=== PATIENT | male | born 1950 | race Caucasian/White ===

== ENCOUNTER 2018-03-28 19:27 | Inpatient (IN) | payer MEDICARE, OTHER ==
[2018-03-28] MEDS ORDERED: Ibuprofen 800 MG Tab PO ONE (19:43)
[2018-03-28] MEDS ORDERED: Levofloxacin/Dextrose 5%-Water 750 MG in Premix Bag 1 BAG IV ONE (19:43)
[2018-03-28] MEDS ORDERED: Sodium Chloride 0.9% 1,000 ML IV SCH (19:45)
[2018-03-28] MEDS ORDERED: Lactated Ringers 1,000 ML IV SCH (20:00)
--- NOTE | 2018-03-28 20:08 | EDM.PDOC ---
ED HPI GENERAL MEDICAL PROBLEM - General Chief Complaint: Fever Stated Complaint: RESPIRATORY DISTRESS Time Seen by Provider: 03/28/18 19:45 - History of Present Illness INITIAL COMMENTS - FREE TEXT/NARRATIVE: Ahsan is a 67-year-old male who came in because of sudden onset of fever and chills around 11 this morning. It's accompanied by shortness of breath cough that is productive of frothy sputum. He went to the walk-in clinic was found to have a high temperature and was in good distress. 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 He also sees a sba business development officer twice a year - Related Data Allergies Allergy/AdvReac Type Severity Reaction Status Date / Time acetaminophen [From Tylenol] Allergy Rash Verified 03/28/18 19:34 amoxicillin [Amoxicillin] Allergy Rash Verified 03/28/18 19:34 penicillin V [Penicillin V] Allergy Rash Verified 03/28/18 19:34 Penicillins Allergy Rash Verified 03/28/18 19:34 piperacillin Allergy Rash Verified 03/28/18 19:34 piperacillin sodium Allergy Rash Verified 03/28/18 19:34 [From Zosyn] tazobactam sodium Allergy Rash Verified 03/28/18 19:34 [From Zosyn] Home Meds: Home Meds Aspirin [Blaze Chewable] 81 mg PO DAILY 10/06/13 [History] Cholecalciferol (Vitamin D3) [Vitamin D3] 2,000 unit PO DAILY 10/06/13 [History] Docusate Sodium/Sennosides [Senokot-S] 2 each PO BEDTIME 10/06/13 [History] Famotidine [Pepcid] 10 mg PO BID 10/06/13 [History] LORazepam 0.5 mg PO TID 10/06/13 [History] Multivitamin [Multivitamins] 1 each PO DAILY 10/06/13 [History] PARoxetine [Paxil] 30 mg PO DAILY 10/06/13 [History] Polyethylene Glycol 3350 [MiraLAX] 17 gm PO DAILY 10/06/13 [History] guaiFENesin [Mucus-ER] 1,200 mg PO BID 10/06/13 [History] Acetylcysteine [Mucomyst 20%] 200 mg INH BID PRN 03/28/18 [History] Albuterol Sulfate 1 packet INH QID 03/28/18 [History] ED ROS GENERAL - Review of Systems Review Of Systems: ROS reveals no pertinent complaints other than HPI. ED EXAM, SEPSIS - Physical Exam Exam: See Below Exam Limited By: No Limitations General Appearance: Alert, Moderate Distress Ears: Normal External Exam Nose: Normal Inspection Throat/Mouth: Normal Inspection Head: Atraumatic Neck: Normal Inspection Respiratory/Chest: Respiratory Distress, Crackles, Rales, Accessory Muscle Use Cardiovascular: Normal Peripheral Pulses GI/Abdominal Exam: Normal Bowel Sounds Back: Normal Inspection Extremities: Normal Inspection Neurological: Alert Psychiatric: Anxious Skin: Warm Course - Vital Signs Text/Narrative:: IV access obtained. Started a bolus on LR,and gave him Motrin.Obtained Blood cultures and started abx. Last Recorded V/S: Last Vital Signs Temp 103 F H 03/28/18 20:10 Pulse 118 H 03/28/18 19:35 Resp 28 H 03/28/18 19:35 BP 127/65 03/28/18 19:35 Pulse Ox 94 L 03/28/18 19:35 - Orders/Labs/Meds Orders: Active Orders 24 hr Category Date Time Status Chest 1V Frontal [CR] Stat Exams 03/28/18 20:00 Taken C-REACTIVE PROTEIN [CHEM] Stat Lab 03/28/18 20:00 Received CBC WITH AUTO DIFF [HEME] Stat Lab 03/28/18 20:00 Results CULTURE BLOOD [BC] Urgent Lab 03/28/18 20:00 Received CULTURE BLOOD [BC] Urgent Lab 03/28/18 20:05 Received UA W/MICROSCOPIC [URIN] Stat Lab 03/28/18 19:42 Ordered Lactated Ringers [Ringers, Lactated] 1,000 ml Med 03/28/18 20:00 Active IV ASDIRECTED Levofloxacin/Dextrose 5%-Water [Levaquin in D5W 750 MG/ Med 03/28/18 19:43 Active 150 ML] 750 mg Premix Bag 1 bag IV ONETIME Blood Culture x2 Reflex Set [OM.PC] Urgent Oth 03/28/18 19:41 Ordered Medication Orders Levofloxacin/Dextrose 750 mg/ (Premix) 150 mls @ 100 mls/hr IV ONETIME ONE Stop: 03/28/18 21:12 Last Admin: 03/28/18 20:05 Dose: 100 mls/hr Lactated Ringer's (Ringers, Lactated) 1,000 mls @ 999 mls/hr IV ASDIRECTED [facility] Last Admin: 03/28/18 20:00 Dose: 999 mls/hr Labs: Laboratory Tests 03/28/18 03/28/18 03/28/18 Range/Units 20:00 20:00 20:00 WBC 12.3 H (4.5-12.0) X10-3/uL RBC 4.63 (4.30-5.75) x10(6)uL Hgb 14.2 (11.5-15.5) g/dL Hct 41.6 (30.0-51.3) % MCV 89.8 (80-96) fL MCH 30.6 (27.7-33.6) pg MCHC 34.0 (32.2-35.4) g/dL RDW 13.6 (11.5-15.5) % Plt Count 171 (125-369) X10(3)uL MPV 8.5 (7.4-10.4) fL Add Manual Diff Yes Sodium 138 (135-145) mmol/L Potassium 3.9 (3.5-5.3) mmol/L Chloride 102 (100-110) mmol/L Carbon Dioxide 29 (21-32) mmol/L BUN 17 (7-18) mg/dL Creatinine 0.6 L (0.70-1.30) mg/dL Est Cr Clr Drug Dosing TNP Estimated GFR (MDRD) > 60 (>60) BUN/Creatinine Ratio 28.3 H (9-20) Glucose 133 H (80-116) mg/dL Lactic Acid 0.9 (0.4-2.2) mmol/L Calcium 8.9 (8.6-10.2) mg/dL Meds: Medications Generic Name Dose Route Start Last Admin Trade Name Freq PRN Reason Stop Dose Admin Levofloxacin/Dextrose 750 mg/ 150 mls @ 100 mls/hr 03/28/18 19:43 03/28/18 20 :05 Premix IV 03/28/18 21:12 100 mls/hr ONETIME ONE Administration Lactated Ringer's 1,000 mls @ 999 mls/hr 03/28/18 20:00 03/28/18 20:00 Ringers, Lactated IV 999 mls/hr ASDIRECTED JOSE Administration Discontinued Medications Generic Name Dose Route Start Last Admin Trade Name Lev PRN Reason Stop Dose Admin Sodium Chloride 1,000 mls @ 999 mls/hr 03/28/18 19:45 Normal Saline IV ASDIRECTED JOSE Ibuprofen 800 mg 03/28/18 19:43 03/28/18 20:10 Motrin PO 03/28/18 19:44 800 mg ONETIME ONE Administration Departure - Departure Time of Disposition: 21:08 Disposition: Admitted As Inpatient 68 Condition: Fair Clinical Impression: Pneumonia - Discharge Information Referrals: Roberto Howard MD [Primary Care Provider] - Forms: ED Department Discharge - Problem List & Annotations (1) Pneumonia SNOMED Code(s): 903903094 Code(s): J18.9 - PNEUMONIA, UNSPECIFIED ORGANISM Status: Acute Current Visit: No (2) Myopathy SNOMED Code(s): 81712893 Code(s): G72.9 - MYOPATHY, UNSPECIFIED Status: Acute Current Visit: Yes (3) Chronic bronchitis SNOMED Code(s): 46187568 Code(s): J42 - UNSPECIFIED CHRONIC BRONCHITIS Status: Acute Current Visit : Yes Qualifiers: Chronic bronchitis type: mucopurulent Qualified Code(s): J41.1 - Mucopurulent chronic bronchitis (4) Anxiety SNOMED Code(s): 81727614 Code(s): F41.9 - ANXIETY DISORDER, UNSPECIFIED Status: Acute Current Visit: Yes (5) Fever SNOMED Code(s): 407965696 Code(s): R50.9 - FEVER, UNSPECIFIED Status: Acute Current Visit: Yes (6) Respiratory muscle paralysis SNOMED Code(s): 38726320 Code(s): R06.81 - APNEA, NOT ELSEWHERE CLASSIFIED Status: Acute Current Visit: Yes - Problem List Review Problem List Initiated/Reviewed/Updated: Yes - My Orders Last 24 Hours: My Active Orders 03/28/18 19:41 Blood Culture x2 Reflex Set [OM.PC] Urgent 03/28/18 19:42 UA W/MICROSCOPIC [URIN] Stat 03/28/18 19:43 Levofloxacin/Dextrose 5%-Water [Levaquin in D5W 750 MG/150 ML] 750 mg Premix Bag 1 bag IV ONETIME 03/28/18 20:00 Chest 1V Frontal [CR] Stat C-REACTIVE PROTEIN [CHEM] Stat CBC WITH AUTO DIFF [HEME] Stat CULTURE BLOOD [BC] Urgent Lactated Ringers [Ringers, Lactated] 1,000 ml IV ASDIRECTED 03/28/18 20:05 CULTURE BLOOD [BC] Urgent - Assessment/Plan Last 24 Hours: My Active Orders 03/28/18 19:41 Blood Culture x2 Reflex Set [OM.PC] Urgent 03/28/18 19:42 UA W/MICROSCOPIC [URIN] Stat 03/28/18 19:43 Levofloxacin/Dextrose 5%-Water [Levaquin in D5W 750 MG/150 ML] 750 mg Premix Bag 1 bag IV ONETIME 03/28/18 20:00 Chest 1V Frontal [CR] Stat C-REACTIVE PROTEIN [CHEM] Stat CBC WITH AUTO DIFF [HEME] Stat CULTURE BLOOD [BC] Urgent Lactated Ringers [Ringers, Lactated] 1,000 ml IV ASDIRECTED 03/28/18 20:05 CULTURE BLOOD [BC] Urgent Plan: Admit Ahsan to the ICU, broad-spectrum antibiotics awaiting blood and sputum cultures.
[2018-03-28] MEDS ORDERED: Ondansetron 4 MG Tab.DIS PO PRN (21:08)
[2018-03-28] MEDS ORDERED: LORazepam 2 MG/ML SDV IV PRN (21:08)
[2018-03-28] MEDS: methylPREDNISolone Sodium Succinate 125 MG/2 ML SDV IVPUSH SCH (21:30)
[2018-03-28] MEDS ORDERED: Vancomycin 1,000 MG SDV ONE (21:54)
[2018-03-28] MEDS ORDERED: Albuterol/Ipratropium 3.0-0.5 MG/3 ML Neb Soln ONE (23:23)
[2018-03-28] MEDS ORDERED: Albuterol/Ipratropium 3.0-0.5 MG/3 ML Neb Soln NEB ONE (23:30)
[2018-03-28] MEDS: Lactated Ringers 1,000 ML IV SCH (23:31)
[2018-03-29] MEDS ORDERED: PARoxetine 20 MG Tab ONE (00:05)
[2018-03-29] MEDS: methylPREDNISolone Sodium Succinate 125 MG/2 ML SDV IVPUSH SCH ×2 (05:40→13:16)
[2018-03-29] MEDS: Lactated Ringers 1,000 ML IV SCH ×2 (06:56→16:24)
[2018-03-29] MEDS: Albuterol/Ipratropium 3.0-0.5 MG/3 ML Neb Soln NEB SCH ×3 (07:05→15:13)
[2018-03-29] MEDS ORDERED: cefTRIAXone 2 GM Vial IVPUSH SCH (10:45)
[2018-03-29] MEDS ORDERED: Azithromycin 500 MG in Sodium Chloride 0.9% 250 ML IV SCH ×4 (11:00)
--- NOTE | 2018-03-29 11:19 | HP ---
ADMISSION DATE: 03/28/2018 CHIEF COMPLAINT: Complicated cough, fever, and pneumonia. HISTORY OF PRESENT ILLNESS: Ahsan Padron is a 67-year-old male, [place] resident, was seen at [facility], referred to ER, admitted to the hospital for treatment. He has been feeling poorly since probably the end of February. The last few days though with troublesome cough, low-grade fever, chills, productive cough, moderate frothy sputum, and a sense of reduced well-being. History of complicated pneumonia dating back 4 years ago with lengthy stay and critical illness myopathy. Radiographic evidence of pneumonia and elevated white count suggesting for hospitalization. PRESENT MEDICATIONS: Please see med recon list. ALLERGIES: Penicillin, amoxicillin, piperacillin, Zosyn, sodium chloride, and acetaminophen. PAST MEDICAL HISTORY: Significant for prolonged hospitalization between 2011 and 2013. Critical illness myopathy, complicated pneumonia, tracheostomy, and long-term followup. Resulted in significant myopathy and moderate health difficulty. PAST SURGICAL HISTORY: Surgeries include tracheostomy and bronchoscopies. SOCIAL HISTORY: Lives with in [facility], retired. in good health. Children in good health. Nonsmoker. No alcohol. No illicit drug use. REVIEW OF SYSTEMS: CONSTITUTIONAL: Feeling poorly today. HEENT: Sees well, hears well, intact dentition. GI: Bowels have been fine. : Bladder has been fine. No blood in stools. No blood in urine. CHEST: Cough and respiratory difficulty present, generalized weakness. PHYSICAL EXAMINATION: VITAL SIGNS: 36.7; pulse is 60; 131/103, though previously 116/61; 94%. GENERAL: Appears comfortable. Sats are reasonable. Speech was fluent. Oriented to time, place, and person. HEENT: Funduscopic benign. Conjunctivae clear. Bright tympanic membranes. Decreased hearing. Clear nasal discharge. Mouth and oropharynx clear. Dentition in poor condition. NECK: Benign. Thyroid small. No JVD. No carotid bruits. Healed tracheostomy scar. CHEST: Diffuse wheeze and coarse rhonchi, particularly in the left lower lobe. HEART: Distant heart sounds with occasional ectopy. BREASTS: Normal male breasts. ABDOMEN: Benign. No hepatosplenomegaly. : Normal male genitalia. RECTAL: Deferred. EXTREMITIES: Well perfused. LABORATORY STUDIES: White count 12,300, hemoglobin 14.2, neutrophilia. Elevated CRP at 12. RADIOGRAPHS: Bibasilar pneumonia. ASSESSMENT: Bibasilar pneumonia. PLAN: Intervention, timely care, and treatment appropriate; 3-drug antibiotic therapy. Aggressive RT treatment. Cultures have been obtained. Supportive measures in the meantime. /[id number] CANDELARIA/KYE
[2018-03-29] MEDS ORDERED: Albuterol/Ipratropium 3.0-0.5 MG/3 ML Neb Soln NEB PRN (17:25)
[2018-03-29] MEDS ORDERED: Levofloxacin/Dextrose 5%-Water 500 MG in Premix Bag 1 BAG IV SCH (20:00)
--- NOTE | 2018-03-30 01:32 | DISCH ---
DISCHARGE DATE: 03/29/2018 TIME: 1900 hours. HOSPITAL COURSE: Ahsan Padron is a 67-year-old male, admitted with pneumonia, mild distress, and low-grade fever. Right lower lobe pneumonia. Plain film showed pneumonia, clinically stable. CBC is unremarkable. White count was good. He had an episode of mild respiratory difficulty about noon, cleared with cough. DuoNeb provided benefit. Continued treatment. In the day, marked hypoxia, markedly accelerated blood pressure. Episodes of pleuritic chest pain and troublesome shortness of breath. 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 I spoke with Dr. [facility]. Critical Care will accept the patient in transfer. I encouraged helicopter, the patient declined. Vital signs seemed to stabilize. He was comfortable with ground transportation and Urgent Care transfer to the main hospital. /[id number] CANDELARIA/KYE
== END 2018-03-29 19:35 | DRG 194 ==
LOC: FB.ED 19:27 → FB.ICU 21:08
PROVIDERS: ADMIT Family Medicine; ATTEND Family Medicine
DX: J18.9 Pneumonia, unspecified organism (principal); G72.81 Critical illness myopathy; R06.81 Apnea, not elsewhere classified; J41.1 Mucopurulent chronic bronchitis; R50.9 Fever, unspecified; R05 Cough; R06.02 Shortness of breath; Z79.82 Long term (current) use of aspirin; Z88.6 Allergy status to analgesic agent; Z88.1 Allergy status to other antibiotic agents; Z88.0 Allergy status to penicillin; Z88.8 Allergy status to other drugs, medicaments and biological substances; Z87.09 Personal history of other diseases of the respiratory system
CPT/HCPCS: 36415; 71045; 71045-RT; 80048; 81001; 83605; 85025; 86140; 87040; 87070; 87205; 93005; 94640; 96365; 96375; 99284; 99285; A9270-GY; J0456; J0696; J1956; J2060; J2930; J3370; J7050; J7120; J7620-GY

== ENCOUNTER 2021-02-20 20:51 | Emergency (ER) | payer MEDICARE, OTHER ==
[2021-02-20] MEDS ORDERED: Ondansetron 4 MG/2 ML SDV IVPUSH ONE (21:22)
[2021-02-20] MEDS ORDERED: Morphine 4 MG/ML VIAL IVPUSH ONE (21:23)
--- NOTE | 2021-02-20 21:28 | EDM.PDOC ---
ED HPI GENERAL MEDICAL PROBLEM - General Chief Complaint: Abdominal Pain Stated Complaint: R UPPER SIDE/ABD PAIN Time Seen by Provider: 02/20/21 21:15 Source of Information: Reports: Patient, Family History Limitations: Reports: No Limitations - History of Present Illness INITIAL COMMENTS - FREE TEXT/NARRATIVE: 62-year-old gentleman came to the emergency department due to severe right upper quadrant and right lower quadrant abdominal pain. Patient has a significant past medical history involving pulmonary and abdomen including history of slow transit constipation. Patient states that he was feeling poorly earlier in the week. Patient states he went to [facility] after sitting outside and feeling better. He had a meal at the [facility] that is no rmally not something that would aggravate his stomach but he began to have severe pain as above shortly after the meal. He came to the emergency department for evaluation and treatment. Right Lower Abdomen Pain Score (Numeric/FACES): 9 - Related Data Allergies Allergy/AdvReac Type Severity Reaction Status Date / Time acetaminophen [From Tylenol] Allergy Rash Verified 03/28/18 19:34 amoxicillin [Amoxicillin] Allergy Rash Verified 03/28/18 19:34 penicillin V [Penicillin V] Allergy Rash Verified 03/28/18 19:34 Penicillins Allergy Rash Verified 03/28/18 19:34 piperacillin Allergy Rash Verified 03/28/18 19:34 piperacillin sodium Allergy Rash Verified 03/28/18 19:34 [From Zosyn] tazobactam sodium Allergy Rash Verified 03/28/18 19:34 [From Zosyn] Home Meds: Home Meds Aspirin [Blaze Chewable] 81 mg PO DAILY 10/06/13 [History] Cholecalciferol (Vitamin D3) [Vitamin D3] 2,000 unit PO DAILY 10/06/13 [History] Docusate Sodium/Sennosides [Senokot-S] 2 each PO BEDTIME 10/06/13 [History] Famotidine [Pepcid] 10 mg PO BID 10/06/13 [History] LORazepam 0.5 mg PO TID 10/06/13 [History] Multivitamin [Multivitamins] 1 each PO DAILY 10/06/13 [History] PARoxetine [Paxil] 30 mg PO BEDTIME 10/06/13 [History] guaiFENesin [Mucus-ER] 1,200 mg PO BID 10/06/13 [History] polyethylene glycoL 3350 [MiraLAX] 17 gm PO DAILY 10/06/13 [History] Acetylcysteine [Mucomyst 20%] 200 mg INH BID PRN 03/28/18 [History] Albuterol [Proventil Neb Soln] 2.5 mg IH BID 03/29/18 [History] Albuterol [Proventil Neb Soln] 2.5 mg IH BID PRN 03/29/18 [History] LORazepam [Ativan] 0.5 mg PO DAILY PRN 03/29/18 [History] Past Medical History HEENT History: Reports: Hard of Hearing Cardiovascular History: Reports: Other (See Below) Other Cardiovascular History: 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 Respiratory History: Reports: Intubation, Previous, Pneumonia, Recurrent, SOB, Other (See Below) Other Respiratory History: pleurisy, previous traceostomy Musculoskeletal History: Reports: Other (See Below) Other Musculoskeletal History: Critical myopathy from since 2011 leaving patient very weak Neurological History: Reports: Neuropathy, Peripheral Psychiatric History: Reports: Anxiety, Depression, Panic Attack Hematologic History: Reports: Other (See Below) Other Hematologic History: Blood transfusions Dermatologic History: Reports: Other (See Below) Other Dermatologic History: Shingles - Infectious Disease History Infectious Disease History: Reports: Chicken Pox, MRSA, Shingles - Past Surgical History Head Surgeries/Procedures: Reports: None Respiratory Surgical History: Reports: Tracheostomy GI Surgical History: Reports: Colonoscopy Male Surgical History: Reports: Circumcision Social & Family History - Family History Family Medical History: No Pertinent Family History - Caffeine Use Caffeine Use: Reports: None ED ROS GENERAL - Review of Systems Review Of Systems: See Below Constitutional: Reports: No Symptoms HEENT: Reports: No Symptoms Respiratory: Reports: No Symptoms Cardiovascular: Reports: No Symptoms Endocrine: Reports: No Symptoms GI/Abdominal: Reports: Abdominal Pain : Reports: Other (Dark urine last 3 days) Musculoskeletal: Reports: No Symptoms Skin: Reports: No Symptoms Neurological: Reports: No Symptoms Psychiatric: Reports: No Symptoms Hematologic/Lymphatic: Reports: No Symptoms Immunologic: Reports: No Symptoms ED EXAM, GI/ABD - Physical Exam Exam: See Below Exam Limited By: No Limitations General Appearance: Alert, Moderate Distress Eyes: Bilateral: EOMI Respiratory/Chest: No Respiratory Distress, Lungs Clear Cardiovascular: Normal Peripheral Pulses, Regular Rate, Rhythm GI/Abdominal Exam: Other (Abdomen is distended, tympanic bowel sounds in the right upper quadrant, significant tenderness to palpation) Extremities: Pedal Edema, Other (Lateral compression stockings to the knee with a left lower leg brace below the knee) Neurological: Alert, Oriented Psychiatric: Anxious Skin Exam: Warm, Dry, Intact Course - Vital Signs Text/Narrative:: Patient has had mild hypotension and has been febrile. Lactic acid and blood cultures have been started. Consultation with general surgery at [facility] in [place], [place] and they will accept transfer for likely acute cholecystitis as seen on CT. Patient will be given 1 L IV fluid bolus, 2 g cefepime and 500 mg Flagyl at this time. Last Recorded V/S: Last Vital Signs Temp 36.8 C 02/20/21 21:27 Pulse 77 02/20/21 21:27 Resp 16 02/20/21 21:27 BP 106/68 02/20/21 21:27 Pulse Ox 100 02/20/21 21:27 - Orders/Labs/Meds Orders: Active Orders 24 hr Category Date Time Status Abdomen Pelvis w Cont [CT] Stat Exams 02/20/21 21:21 Taken CULTURE BLOOD [BC] Urgent Lab 02/20/21 23:14 Ordered CULTURE BLOOD [BC] Urgent Lab 02/20/21 23:14 Ordered LACTIC ACID SEPSIS W/ REFLEX [LACTATE SEPSIS W/ REFLEX] Lab 02/20/21 23:13 Ordered [CHEM] Stat UA W/MICROSCOPIC [URIN] Stat Lab 02/20/21 21:20 Ordered Sodium Chloride 0.9% [Normal Saline] 1,000 ml Med 02/20/21 23:45 Ordered IV ASDIRECTED metroNIDAZOLE/Normal Saline [Flagyl in NS 500 MG/100 ML Med 02/20/21 23:51 Ordered ] 500 mg Premix Bag 1 bag IV ONETIME Blood Culture x2 Reflex Set [OM.PC] Urgent Oth 02/20/21 23:14 Ordered Medication Orders Sodium Chloride (Normal Saline) 1,000 mls @ 9,999 mls/hr IV ASDIRECTED JOSE Metronidazole 500 mg/ Premix 100 mls @ 100 mls/hr IV ONETIME ONE Stop: 02/21/21 00:50 Labs: Laboratory Tests 02/20/21 02/20/21 Range/Units 21:30 21:30 WBC 7.9 (3.2-10.1) x10-3/uL RBC 4.30 (3.90-5.90) x10(6)uL Hgb 13.1 (12.9-17.7) g/dL Hct 38.9 (38.3-50.1) % MCV 90.3 (80.8-98.7) fL MCH 30.5 (27.0-33.3) pg MCHC 33.7 (28.7-35.3) g/dL RDW 13.4 (12.4-15.0) % Plt Count 166 (117-477) x10(3)uL MPV 7.4 (6.7-11.0) fL Neut % (Auto) 74.5 H (40.3-71.8) % Lymph % (Auto) 12.6 L (15.8-45.3) % [place] % (Auto) 10.8 (5.5-15.2) % Eos % (Auto) 1.7 (0.1-6.8) % Baso % (Auto) 0.4 (0.3-3.8) % Neut # (Auto) 5.9 (1.7-6.9) x10-3/uL Lymph # (Auto) 1.0 (0.5-4.5) x10-3/uL [place] # (Auto) 0.9 (0.0-1.2) x10-3/uL Eos # (Auto) 0.1 (0.0-0.6) x10-3/uL Baso # (Auto) 0.0 (0.0-0.3) x10-3/uL Sodium 139 (135-145) mmol/L Potassium 4.0 (3.5-5.3) mmol/L Chloride 104 (100-110) mmol/L Carbon Dioxide 29 (21-32) mmol/L BUN 19 H (7-18) mg/dL Creatinine 0.7 (0.70-1.30) mg/dL Est Cr Clr Drug Dosing 104.29 mL/min Estimated GFR (MDRD) > 60 (>60) BUN/Creatinine Ratio 27.1 H (9-20) Glucose 115 (80-116) mg/dL Calcium 8.7 (8.6-10.2) mg/dL Total Bilirubin 1.3 (0.1-1.3) mg/dL AST 53 H (5-25) IU/L ALT 91 H (12-36) U/L Alkaline Phosphatase 338 H (56-112) IU/L Total Protein 6.6 (6.0-8.0) g/dL Albumin 3.2 (3.2-4.6) g/dL Globulin 3.4 g/dL Albumin/Globulin Ratio 0.9 Meds: Medications Generic Name Dose Route Start Last Admin Trade Name Freq PRN Reason Stop Dose Admin Sodium Chloride 1,000 mls @ 9,999 mls/hr 02/20/21 23:45 Normal Saline IV ASDIRECTED JOSE Metronidazole 500 mg/ Premix 100 mls @ 100 mls/hr 02/20/21 23:51 IV 02/21/21 00:50 ONETIME ONE Discontinued Medications Generic Name Dose Route Start Last Admin Trade Name Lev PRN Reason Stop Dose Admin Cefepime HCl 2 gm 02/20/21 23:50 Cefepime 2 Gm Vial IVPUSH 02/20/21 23:51 ONETIME ONE Iopamidol 130 ml 02/20/21 21:55 02/20/21 22:26 Iopamidol 755 Mg/Ml 150 Ml Bottle IV 02/20/21 21:56 130 ml ONETIME ONE Administration Morphine Sulfate 4 mg 02/20/21 21:23 02/20/21 21:55 Morphine 4 Mg/Ml Vial IVPUSH 02/20/21 21:24 4 mg ONETIME ONE Administration Ondansetron HCl 4 mg 02/20/21 21:22 02/20/21 21:55 Ondansetron 4 Mg/2 Ml Sdv IVPUSH 02/20/21 21:23 4 mg ONETIME ONE Administration Departure - Departure Time of Disposition: 23:53 Disposition: DC/Tfer to Other 70 Clinical Impression: Cholecystitis, acute - Discharge Information *PRESCRIPTION DRUG MONITORING PROGRAM REVIEWED*: Not Applicable *COPY OF PRESCRIPTION DRUG MONITORING REPORT IN PATIENT LUKASZ: Not Applicable Referrals: Roberto Howard MD [Primary Care Provider] - Forms: ED Department Discharge Sepsis Event Note (ED) - Focused Exam Vital Signs: Vital Signs Temp Pulse Resp BP Pulse Ox 02/20/21 21:27 36.8 C 77 16 106/68 100 - My Orders Last 24 Hours: My Active Orders 02/20/21 21:20 UA W/MICROSCOPIC [URIN] Stat 02/20/21 21:21 Abdomen Pelvis w Cont [CT] Stat 02/20/21 23:13 LACTIC ACID SEPSIS W/ REFLEX [LACTATE SEPSIS W/ REFLEX] [CHEM] Stat 02/20/21 23:14 CULTURE BLOOD [BC] Urgent CULTURE BLOOD [BC] Urgent Blood Culture x2 Reflex Set [OM.PC] Urgent 02/20/21 23:45 Sodium Chloride 0.9% [Normal Saline] 1,000 ml IV ASDIRECTED 02/20/21 23:51 metroNIDAZOLE/Normal Saline [Flagyl in NS 500 MG/100 ML] 500 mg Premix Bag 1 bag IV ONETIME - Assessment/Plan Last 24 Hours: My Active Orders 02/20/21 21:20 UA W/MICROSCOPIC [URIN] Stat 02/20/21 21:21 Abdomen Pelvis w Cont [CT] Stat 02/20/21 23:13 LACTIC ACID SEPSIS W/ REFLEX [LACTATE SEPSIS W/ REFLEX] [CHEM] Stat 02/20/21 23:14 CULTURE BLOOD [BC] Urgent CULTURE BLOOD [BC] Urgent Blood Culture x2 Reflex Set [OM.PC] Urgent 02/20/21 23:45 Sodium Chloride 0.9% [Normal Saline] 1,000 ml IV ASDIRECTED 02/20/21 23:51 metroNIDAZOLE/Normal Saline [Flagyl in NS 500 MG/100 ML] 500 mg Premix Bag 1 bag IV ONETIME
[2021-02-20] MEDS ORDERED: Iopamidol 755 MG/ML 150 ML Bottle IV ONE (21:55)
[2021-02-20] MEDS ORDERED: Sodium Chloride 0.9% 1,000 ML IV SCH (23:45)
[2021-02-20] MEDS ORDERED: Cefepime 2 GM Vial IVPUSH ONE (23:50)
[2021-02-20] MEDS ORDERED: metroNIDAZOLE/Normal Saline 500 MG in Premix Bag 1 BAG IV ONE (23:51)
[2021-02-21] MEDS ORDERED: Morphine 2 MG/ML SYRINGE IM ONE (00:46)
[2021-02-21] MEDS ORDERED: Morphine 2 MG/ML SYRINGE IVPUSH ONE (00:48)
== END 2021-02-21 01:23 | disposition other institution (70) ==
LOC: FB.ED 20:51
DX: K81.0 Acute cholecystitis (principal); Z87.19 Personal history of other diseases of the digestive system; Z88.6 Allergy status to analgesic agent; Z88.0 Allergy status to penicillin; Z79.82 Long term (current) use of aspirin; Z79.899 Other long term (current) drug therapy
CPT/HCPCS: 36415; 74177; 80053; 83605; 85025; 87040; 96365; 96375; 96376; 99285; J0692; J2270; J2405; J3490; J7030; Q9967

== ENCOUNTER 2022-08-17 04:28 | Emergency (ER) | payer MEDICARE, OTHER ==
[2022-08-17] MEDS: Lidocaine 2% HCl 6 ML Jel ONE (04:50)
[2022-08-17] MEDS: Tamsulosin 0.4 MG Cap.ER PO ONE (05:37)
== END 2022-08-17 06:20 | disposition home or self-care (01) ==
LOC: FB.ED 04:28
DX: N40.1 Benign prostatic hyperplasia with lower urinary tract symptoms (principal); R33.8 Other retention of urine; Z88.1 Allergy status to other antibiotic agents; Z88.8 Allergy status to other drugs, medicaments and biological substances; Z79.82 Long term (current) use of aspirin; Z79.899 Other long term (current) drug therapy
CPT/HCPCS: 51702; 81001; 87086; 99283; 99284; A9270-GY